=== PATIENT | female | born 2000 | race African-American/Black ===

== ENCOUNTER 2024-02-05 23:30 | Observation (INO) ==
[2024-02-05] MEDS: SODIUM CHLORIDE 0.9% 1,000 ML IV SCH (23:56)
--- NOTE | 2024-02-05 23:57 | Emergency Department Note ---
History of Present Illness General Chief complaint: Dizziness Stated complaint: since 10am, DIZZY, NAUSEA, RINGING EARS-WORSENING Time Seen by Provider: 02/05/24 23:37 History of Present Illness Patient is a 23-year-old female with past medical history significant for anxiety, PTSD, asthma, stomach problems and iron deficiency anemia who presents to the emergency department via EMS for evaluation of lightheadedness and dizziness and ringing in the left ear. Symptoms started acutely around 12 hours ago, 10:00 today. She reports she was otherwise feeling well and in her usual state of health until her symptoms started. She states that started with the dizziness, she felt like the room was spinning. She had a little headache with this, but that resolved. The dizziness persisted. She was a little bit nauseous but did not vomit. She reports the left ear started draining around 1130. She laid at home today and tried to rest. She tried to drink fluids. She did not take any medication specifically for her symptoms. This evening, she was out taking a walk with her roommate, when she began to feel dizzy and off balance. She cannot walk straight. She had to sit, then eventually had a lay down. She reports that they contacted an advice nurse Clary told to be seen in the ER so ambulance was summoned. Patient has never had symptoms like this previously. She reports she is being followed by heme-onc for the iron deficiency anemia, she had an iron infusion a couple of months ago, but recent blood work done within the last week show that her levels are low again and they are going to schedule another iron infusion. Last menstrual period was last week, she does report menses are heavy. No blood in her vomit or stool. No urinary symptoms. Home Medications Medication Instructions Recorded Confirmed Type prazosin 1 mg capsule 1 mg PO HS 12/14/23 02/06/24 History buspirone 10 mg tablet 10 mg PO DAILY 02/06/24 02/06/24 History pantoprazole 40 mg tablet,delayed 40 mg PO DAILY PRN gastric distress 02/06/24 02/06/24 History release propranolol 10 mg tablet 10 mg PO DAILY PRN Anxiety 02/06/24 02/06/24 History Allergies Allergy/AdvReac Type Severity Reaction Status Date / Time No Known Allergies Allergy Verified 12/14/23 19:35 Past Med/Surg History Problem List (Updated 02/06/24 @ 06:31 by Melania Francis) Left-sided tinnitus (Acute) Ataxia (Acute) Dizziness (Acute) Rectal bleeding Encounter for pre-operative examination Chronic constipation Gastritis hx Medical History GERD (gastroesophageal reflux disease) Iron deficiency anemia Post traumatic stress disorder hx > no longer on meds Anxiety hx > no longer on meds History of COVID-08 February 2022>no residual symptoms Asthma rare res inh use Chronic constipation Surgical History History of esophagogastroduodenoscopy (EGD) Family History Denies family history of Crohn's disease Colorectal cancer Ulcerative colitis Social History Smoking Status: Never smoker Tobacco Type: E-cigarettes / Vaping Cigarettes Per Day: advised npo status; Second Hand Exposure: No; Do You Dip or Chew Tobacco: No; Hx Alcohol Use: Yes Alcohol type: hard liquor Hx Substance Use: No Preferred Language: Wolof Communication Ability: Effective Voice And Data Technician Required: No Beliefs That Will Affect Care: None Current Living Situation: Other Current Living Situation Comment: roommate Feels Safe at Home: Yes Assistive Devices: Glasses Review of Systems A total of 10 systems reviewed and were otherwise negative Physical Exam Vital Signs Vital Signs - 24 hr 02/05/24 23:33 02/05/24 23:38 02/05/24 23:57 Temperature 37.0 C Temperature Source Oral Pulse Rate - Lying 64 Pulse Rate - Sitting 83 Pulse Rate 77 Pulse Rate [Apical] Respiratory Rate 12 Respiratory Effort / Characteristics Non-Labored Respiratory Depth Normal Respiratory Pattern Regular Blood Pressure - Lying 99/67 L Blood Pressure - Sitting 116/86 Blood Pressure 97/70 L Blood Pressure [Left Arm] Blood Pressure Mean 79 Blood Pressure Mean [Left Arm] Pulse Oximetry 99 99 Oxygen Delivery Method Room Air Room Air Oxygen Flow Rate 0 Sepsis Recent Fever Within 48 Hours No Sepsis New/Unexplained Change in Mental Status No Sepsis Action Taken by Nursing No Action Required 02/06/24 00:00 02/06/24 00:10 02/06/24 02:00 Temperature Temperature Source Pulse Rate - Lying Pulse Rate - Sitting Pulse Rate 68 Pulse Rate [Apical] 76 88 Respiratory Rate 16 15 Respiratory Effort / Characteristics Respiratory Depth Respiratory Pattern Blood Pressure - Lying Blood Pressure - Sitting Blood Pressure Blood Pressure [Left Arm] 110/65 88/47 L Blood Pressure Mean Blood Pressure Mean [Left Arm] 80 60 Pulse Oximetry 100 97 Oxygen Delivery Method Room Air Oxygen Flow Rate Sepsis Recent Fever Within 48 Hours Sepsis New/Unexplained Change in Mental Status Sepsis Action Taken by Nursing 02/06/24 04:00 02/06/24 04:00 02/06/24 06:00 Temperature Temperature Source Pulse Rate - Lying Pulse Rate - Sitting Pulse Rate 64 Pulse Rate [Apical] 64 63 Respiratory Rate 15 15 Respiratory Effort / Characteristics Respiratory Depth Respiratory Pattern Blood Pressure - Lying Blood Pressure - Sitting Blood Pressure Blood Pressure [Left Arm] 102/51 L 96/59 L Blood Pressure Mean Blood Pressure Mean [Left Arm] 68 71 Pulse Oximetry 98 97 Oxygen Delivery Method Oxygen Flow Rate Sepsis Recent Fever Within 48 Hours Sepsis New/Unexplained Change in Mental Status Sepsis Action Taken by Nursing CONSTITUTIONAL: Well-appearing 23-year-old female laying on the gurney, holding her left ear. EYES: Pupils equal, round, reactive to light and accommodation. EOMs intact without nystagmus. Sclera are anicteric. ENT: Tympanic membranes intact, with normal landmarks. External canals are clear. Specifically, left ear is healthy in appearance. No TM abnormality or perforation. Oral and nasopharynx are clear. Mucous membranes are moist, no lesions, tongue and gums appear normal. NECK: No bruits auscultated. Supple without lymphadenopathy. No thyromegaly. No meningeal signs. Full active range of motion without discomfort. CARDIOVASCULAR: Regular rate and rhythm. Peripheral pulses easy to palpable. RESPIRATORY: Breath sounds equal and clear to auscultation. GI: Bowel sounds are present. Abdomen is soft, nontender, nondistended. No organomegaly. No pulsatile masses. No guarding or rebound. MUSCULOSKELETAL: Full range of motion of extremities x 4 with good strength. No cyanosis, edema, joint tenderness or swelling. No deformity. INTEGUMENTARY: No lesions or rash, normal skin turgor. NEUROLOGICAL: Alert, oriented, and cooperative. Cranial nerves 2 through 12, sensation and strength grossly intact. [id number] and [id number] intact. Course Course The patient was seen and assessed. External medical records were reviewed. She presents to the emergency department for evaluation of dizziness and ringing in the left ear. IV lock was initiated. Laboratory studies were collected including CBC with differential, CMP, serum hCG and urinalysis. EKG was obtained and she was observed on the alarm security or surveillance monitor. Nursing staff attempted to do orthostatic vital signs. The patient reportedly could not sit up without getting dizzy and listing to the side. She was given a liter bolus of normal saline solution. Diagnostics, as interpreted by me: Laboratory studies: Normal white count, 5700. H&H 15.5 and 44.7, with low indices. Normal platelet count. No significant electrolyte imbalance, no DONNA, no transaminitis. test is negative. Urinalysis notes 1+ leukocyte Estrace, WBCs and 4+ bacteria. Suspect contamination given lack of urinary symptoms, however culture is pending and will await culture results. Urine toxicology screen is negative. ECG: Indication was dizziness. Normal sinus rhythm with sinus arrhythmia, 75 bpm. No acute ischemic changes. No interval prolongation. No old EKGs available for review. Cardiac Monitoring: Cardiac monitoring: An order was placed for continuous cardiac monitoring. The monitor shows a NSR in the 70s per my interpretation. Imaging studies: Initially obtained plain CT scan of the head: No acute intracranial process. When patient's symptoms persisted, and she was unable to walk to and from the bathroom safely, performed CT angiography of the head and neck. CTA of the head results were telephoned to me directly by interpreting radiologist, Dr. Duenas, with [facility]. He notes concern for asymmetric prominent veins associated with the right middle cerebral artery trifurcation. Concern for AV confirmation with a nidus in the right temporal lobe cannot be excluded. Recommend correlation with MRI. CTA of the neck shows no hemodynamic significant stenosis. Vital signs noted mildly low blood pressures, in the 90s over 70s. Patient was reassessed and blood work was reviewed with her. She was still feeling symptomatic. She was given additional liter of normal saline solution, Benadryl and Zofran IV. CT scan of the head was obtained. Patient was reviewed with attending physician, Dr. Gonsalves. Patient reassessed and CT scan results were discussed with her. Did suggest ambulatory trial to the restroom to provide a urine sample for analysis. Per nursing staff, patient required an assist of 2 to get to the bathroom. While seated on the toilet, she had to hold onto the toilet to keep from falling off. She was able to give a urine sample and then went right back to bed. Given her persistent ataxia/dizziness, ordered CT angiography of the head and neck. She was given meclizine 25 mg p.o. CTA of the head and neck results are as per above. Results were called directly to me by the interpreting radiologist, Dr. Duenas. CT results discussed with Dr. Gonsalves, and reviewed with the patient. She will require further inpatient care for MRI. She was agreeable. Patient reviewed with ED rifle case repairer, and discussed with [facility], Dr. Brewer. They will see the patient for admission. Differential diagnosis: Benign positional vertigo, Mnire's disease, dehydration, hypovolemia, anemia, tumor, infection, hypoglycemia, electrolyte abnormalities, arrhythmia, CVA/TIA, intracranial bleed, mass, toxicologic, neurologic, as well as other pathologies. Administered Medications Discontinued Medications Diphenhydramine HCl (Diphenhydramine 50 Mg/Ml Vial) 25 mg IV NOW STA Stop: 02/06/24 01:35 Last Admin: 02/06/24 01:41 Dose: 25 mg Documented By: DAVID Sodium Chloride (Nss) 1,000 mls @ 999 mls/hr IV .Q1H1M CHUCK Stop: 02/06/24 00:53 Last Infusion: 02/06/24 01:21 Dose: Infused Documented By: Admin: 02/05/24 23:56 Dose: 999 mls/hr Documented By: DAVID Sodium Chloride (Nss) 1,000 mls @ 999 mls/hr IV .Q1H1M CHUCK Stop: 02/06/24 02:35 Last Infusion: 02/06/24 02:48 Dose: Infused Documented By: Admin: 02/06/24 01:41 Dose: 999 mls/hr Documented By: DAVID Ioversol (Optiray 320 125ml) 120 ml IV ONCE ONE Stop: 02/06/24 05:01 Last Admin: 02/06/24 04:55 Dose: 120 ml Documented By: KWABENA Meclizine HCl (Meclizine Hcl 25 Mg Tab) 25 mg PO NOW STA Stop: 02/06/24 04:37 Last Admin: 02/06/24 04:46 Dose: 25 mg Documented By: DAVID Ondansetron HCl (Ondansetron Inj 2 Mg/Ml 2 Ml Vial) 4 mg IV NOW STA Stop: 02/06/24 01:35 Last Admin: 02/06/24 01:41 Dose: 4 mg Documented By: DAVID Medical Decision Making Differential Diagnosis See ED Course. Medical Records Attestation: I reviewed the patient's medical records. Home Medications Current Medication List: was personally reviewed by me Laboratory Data Attestation: I reviewed the patient's lab results. 02/06/24 00:27 02/06/24 00:27 Lab Results 02/06/24 02/06/24 Range/Units 00:27 04:13 WBC 5.77 (4.8-10.8) K/ul RBC 6.23 H (4.20-5.40) M/uL Hgb 15.5 (12.0-16.0) g/dl Hct 44.7 (37.0-47.0) % MCV 71.7 L (80.0-100.0) fL MCH 24.9 L (25.0-34.0) pg MCHC 34.7 (32.0-36.0) g/dL RDW Std Deviation 54.4 H (36.4-46.3) fL RDW Coeff of Deb 22.2 H (11.5-14.5) % Plt Count 297 (130-400) K/uL MPV 10.1 (9.4-12.4) fL Immature Gran % (Auto) 0.3 % Neut % (Auto) 48.2 % Lymph % (Auto) 35.2 % [place] % (Auto) 12.0 % Eos % (Auto) 3.6 % Baso % (Auto) 0.7 % Neut # (Auto) 2.78 (1.40-6.50) K/uL Lymph # (Auto) 2.03 (1.20-3.40) K/uL [place] # (Auto) 0.69 H (0.11-0.59) K/uL Eos # (Auto) 0.21 (0.00-0.50) K/uL Baso # (Auto) 0.04 (0.00-0.20) K/uL Immature Gran # (Auto) 0.02 (0.01-0.20) K/uL Absolute Nucleated RBC 0.06 (0.00-0.12) K/uL Nucleated RBC % (auto) 1.0 % Polychromasia 3+ Anisocytosis Present Sodium 139 (136-145) mmol/L Potassium 3.6 (3.5-5.1) mmol/L Chloride 108 H (98-107) mmol/L Carbon Dioxide 23 (21-32) mmol/L Anion Gap 8 (3-11) BUN 13 (6-23) mg/dl Creatinine 0.89 (0.6-1.2) mg/dl Est Cr Clr Drug Dosing 86.3 ml/min Est GFR ( Amer) 107.4 ml/min Est GFR (Non-Af Amer) 92.6 ml/min BUN/Creatinine Ratio 14.6 (10-20) Glucose 94 (70-99(Fasting)) mg/dl Calcium 9.3 (8.6-10.3) mg/dl Total Bilirubin 0.3 (0.2-1.0) mg/dl AST 18 (13-39) U/L ALT 12 (7-52) U/L Alkaline Phosphatase 42 (34-104) U/L Total Protein 6.7 (6.0-8.3) gm/dl Albumin 4.0 (3.4-5.0) gm/dl Globulin 2.7 (2.5-4.0) gm/dl Albumin/Globulin Ratio 1.5 (0.9-2) HCG, Qual Negative (Negative) Urine Color Yellow Urine Appearance Cloudy A (Clear) Urine pH 7.0 (4.5-7.5) Ur Specific [place] 1.024 (1.000-1.030) Urine Protein Negative (Negative) Urine Glucose (UA) Negative (Negative) Urine Ketones Trace H (Negative) Urine Blood Negative (Negative) Urine Nitrite Negative (Negative) Urine Bilirubin Negative (Negative) Urine Urobilinogen Negative (Negative) Ur Leukocyte Esterase 1+ H (Negative) Urine WBC (Auto) 6-10 H (0-5) /hpf Urine RBC (Auto) 0-2 (0-2) /hpf U Hyaline Cast (Auto) 0-2 (0-2) /lpf U Epithel Cells (Auto) 0-2 (0-2) /hpf Urine Bacteria (Auto) 4+ H (None Seen) Urine Opiates Screen Neg (Neg) Ur Methadone, Qual Neg (Neg) Urine Fentanyl Screen Neg (Neg) Urine Barbiturates Neg (Neg) Ur Phencyclidine (PCP) Neg (Neg) U Amphetamin/Meth Scrn Neg (Neg) MDMA (Ecstasy) Screen Neg (Neg) U Benzodiazepines Scrn Neg (Neg) Ur Cocaine Metabolite Neg (Neg) U Marijuana (THC) Screen Neg (Neg) Imaging Data Attestation: I personally reviewed and interpreted this imaging study as follows: Radiologist's Impression: Head CT 02/06/24 01:34 Exam(s): CT HEAD Without Contrast EXAM: CT Head Without Intravenous Contrast CLINICAL HISTORY: DIZZINESS, RINGING IN LEFT EAR. TECHNIQUE: Axial computed tomography images of the head/brain without intravenous contrast. CTDI is 38.99 mGy and DLP is 547.75 mGy-cm. Automated exposure control was utilized for the study. A dose lowering technique was utilized adhering to the principles of ALARA. COMPARISON: No relevant prior studies available. FINDINGS: Brain: No acute stroke. No hemorrhage. No abnormal extra-axial fluid collection. No focal parenchymal abnormality. Ventricles: No hydrocephalus. No midline shift. Bones/joints: Unremarkable. No acute fracture. Soft tissues: Unremarkable. Sinuses: Mastoid air cells and middle ears are well aerated.. No acute sinusitis. IMPRESSION: No acute abnormality. Electronically signed by: Abdelrahman Duenas M.D. 02/06/24 03:43 AM Head CTA 02/06/24 04:36 CR Exam(s): CTA HEAD With Contrast IV Amt: 120 ml EXAM: CT Angiography Head With Intravenous Contrast CLINICAL HISTORY: Reason for exam: dizziness. TECHNIQUE: Axial computed tomographic angiography images of the head with intravenous contrast. CTDI is 12.8 mGy and DLP is 480.57 mGy-cm. Automated exposure control was utilized for the study. A dose lowering technique was utilized adhering to the principles of ALARA. 3D and MIP reconstructed images were created and reviewed. CONTRAST: Patient received 120 ml of IV contrast COMPARISON: CT head 02/06/2024. FINDINGS: Right internal carotid artery: No acute abnormality. Intracranial segment is patent with no significant stenosis. No aneurysm. Right anterior cerebral artery: Unremarkable. No occlusion or significant stenosis. No aneurysm. Right middle cerebral artery: Asymmetric prominent venous structures adjacent to the proximal right middle cerebral artery trifurcation vessels with prominent draining veins. An arteriovenous malformation with a nidus in the right temporal lobe cannot be excluded. No aneurysm. Right posterior cerebral artery: Unremarkable. No occlusion or significant stenosis. No aneurysm. Right vertebral artery: Unremarkable as visualized. Left internal carotid artery: No acute abnormality. Intracranial segment is patent with no significant stenosis. No aneurysm. Left anterior cerebral artery: Unremarkable. No occlusion or significant stenosis. No aneurysm. Left middle cerebral artery: Unremarkable. No occlusion or significant stenosis. No aneurysm. Left posterior cerebral artery: Unremarkable. No occlusion or significant stenosis. No aneurysm. Left vertebral artery: Unremarkable as visualized. Basilar artery: Unremarkable. No occlusion or significant stenosis. No aneurysm. 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 An arteriovenous malformation with a nidus in the right temporal lobe cannot be excluded. Recommend correlation with MRI of the brain when clinically appropriate. Communications: Call Doctor Above results Electronically signed by: Abdelrahman Duenas M.D. 02/06/24 05:55 AM Neck CTA 02/06/24 04:36 Exam(s): CTA NECK With Contrast IV Amt: 120 ml EXAM: CT Angiography Neck With Intravenous Contrast CLINICAL HISTORY: Reason for exam: dizziness. TECHNIQUE: Routine carotid CT angiography protocol was performed with intravenous contrast. NASCET criteria using the distal ICAs for comparison were used for evaluation of stenoses. CTDI is 12.8 mGy and DLP is 480.57 mGy-cm. Automated exposure control was utilized for the study. A dose lowering technique was utilized adhering to the principles of ALARA. 3D and MIP reconstructed images were created and reviewed. CONTRAST: Patient received 120 ml of IV contrast COMPARISON: None. FINDINGS: VASCULATURE: Right common carotid artery: Unremarkable. No occlusion or significant stenosis. No dissection. Right internal carotid artery: Unremarkable. Extracranial segment is patent with no occlusion or significant stenosis. No dissection. Right external carotid artery: Unremarkable. No occlusion. Right vertebral artery: Unremarkable. No occlusion or significant stenosis. No dissection. Left common carotid artery: Unremarkable. No occlusion or significant stenosis. No dissection. Left internal carotid artery: Unremarkable. Extracranial segment is patent with no occlusion or significant stenosis. No dissection. Left external carotid artery: Unremarkable. No occlusion. Left vertebral artery: Unremarkable. No occlusion or significant stenosis. No dissection. NECK: Bones/joints: Unremarkable. No acute fracture. Soft tissues: Unremarkable. Lung apices: Clear. CAROTID STENOSIS REFERENCE USING NASCET CRITERIA: % ICA stenosis = (1 - narrowest ICA diameter/diameter of distal cervical ICA) x 100. Mild - <50% stenosis. Moderate - 50-69% stenosis. Severe - 70-94% stenosis. Near occlusion - 95-99% stenosis. Occluded - 100% stenosis. IMPRESSION: No hemodynamically significant stenosis. Electronically signed by: Abdelrahman Duenas M.D. 02/06/24 05:56 AM MDM Narrative See ED Course. Impression & Plan Dizziness, Ataxia, Left-sided tinnitus Discharge Plan Visit Data Chief Complaint: Dizziness Stated Complaint: since 10am, DIZZY, NAUSEA, RINGING EARS-WORSENING ED Provider: Lisa Gonsalves ED Midlevel Provider: Melania Francis Discharge Problem: Dizziness, Ataxia, Left-sided tinnitus Patient Disposition: Being Evaluated by Hospitalist Forms Stand Alone Forms: [facility] Prescriptions Prescriptions: No Action buspirone 10 mg tablet 10 mg PO DAILY propranolol 10 mg tablet 10 mg PO DAILY PRN (Reason: Anxiety) pantoprazole 40 mg tablet,delayed release (DR/EC) 40 mg PO DAILY PRN (Reason: gastric distress) prazosin 1 mg capsule 1 mg PO HS Referrals Referrals: [place] [Primary Care Provider] -
[2024-02-06 00:53] LABS: Bilirubin,Total 0.3 mg/dl (0.2-1.0); Calcium 9.3 mg/dl (8.6-10.3); Potassium 3.6 mmol/L (3.5-5.1)
[2024-02-06 00:59] LABS: Albumin Globulin Ratio 1.5 (0.9-2); BUN Creatinine Ratio 14.6 (10-20); Creatinine Clr Calc Pharmacy 86.3 ml/min; Est GFR (African American) 107.4 ml/min; Est GFR (Non-African American) 92.6 ml/min; Globulin 2.7 gm/dl (2.5-4.0); Total Protein 6.7 gm/dl (6.0-8.3)
[2024-02-06 01:32] LABS: Pregnancy Test, Serum Negative (Negative)
[2024-02-06] MEDS: ONDANSETRON INJ 2 MG/ML 2 ML VIAL IV STA (01:41)
[2024-02-06] MEDS: diphenhydrAMINE 50 MG/ML VIAL IV STA (01:41)
[2024-02-06] MEDS: SODIUM CHLORIDE 0.9% 1,000 ML IV SCH (01:41)
[2024-02-06 02:12] LABS: Anisocytosis Present; Basophils # (auto) 0.04 K/uL (0.00-0.20); Basophils % (auto) 0.7 %; Eosinophils # (auto) 0.21 K/uL (0.00-0.50); Eosinophils % (auto) 3.6 %; Hematocrit (blood only) 44.7 % (37.0-47.0); Hemoglobin 15.5 g/dl (12.0-16.0); Immature Granulocytes # (auto) 0.02 K/uL (0.01-0.20); Immature Granulocytes % (auto) 0.3 %; Lymphocytes # (auto) 2.03 K/uL (1.20-3.40); Lymphocytes % (auto) 35.2 %; Mean Corpuscular Hemoglobin 24.9 pg (25.0-34.0); Mean Corpuscular Hgb Conc 34.7 g/dL (32.0-36.0); Mean Corpuscular Volume 71.7 fL (80.0-100.0); Mean Platelet Volume 10.1 fL (9.4-12.4); Monocytes # (auto) 0.69 K/uL (0.11-0.59); Neutrophils # (auto) 2.78 K/uL (1.40-6.50); Neutrophils % (auto) 48.2 %; Nucleated RBC # (auto) 0.06 K/uL (0.00-0.12); Platelet Count 297 K/uL (130-400); Polychromasia 3+; RDW Coefficient of Variation 22.2 % (11.5-14.5); RDW Standard Deviation 54.4 fL (36.4-46.3); Red Blood Count 6.23 M/uL (4.20-5.40); White Blood Count 5.77 K/ul (4.8-10.8)
--- NOTE | 2024-02-06 03:44 | CT Scan Report ---
Exam(s): CT HEAD Without Contrast EXAM: CT Head Without Intravenous Contrast CLINICAL HISTORY: DIZZINESS, RINGING IN LEFT EAR. TECHNIQUE: Axial computed tomography images of the head/brain without intravenous contrast. CTDI is 38.99 mGy and DLP is 547.75 mGy-cm. Automated exposure control was utilized for the study. A dose lowering technique was utilized adhering to the principles of ALARA. COMPARISON: No relevant prior studies available. FINDINGS: Brain: No acute stroke. No hemorrhage. No abnormal extra-axial fluid collection. No focal parenchymal abnormality. Ventricles: No hydrocephalus. No midline shift. Bones/joints: Unremarkable. No acute fracture. Soft tissues: Unremarkable. Sinuses: Mastoid air cells and middle ears are well aerated.. No acute sinusitis. IMPRESSION: No acute abnormality. Electronically signed by: Abdelrahman Duenas M.D. 02/06/24 03:43 AM
[2024-02-06 04:39] LABS: Appearance Urine Cloudy (Clear); Bacteria Urine Automated 4+ (None Seen); Bilirubin Urine Negative (Negative); Blood Urine Negative (Negative); Cast Urine Automated 0-2 /lpf (0-2); Color Urine Yellow; Epithelial Cell Urine Auto 0-2 /hpf (0-2); Glucose Urine UA Negative (Negative); Ketones Urine Trace (Negative); Leukocyte Esterase Urine 1+ (Negative); Nitrite Urine Negative (Negative); Protein Urine Negative (Negative); RBC Urine Automated 0-2 /hpf (0-2); Specific Gravity Urine 1.024 (1.000-1.030); Urobilinogen Urine Negative (Negative)
[2024-02-06] MEDS: MECLIZINE HCL 25 MG TAB PO STA (04:46)
[2024-02-06] MEDS: OPTIRAY 320 125ml IV ONE (04:55)
[2024-02-06 05:09] LABS: Amphetamines+Metham, Urine Neg (Neg); Barbiturates, Urine Neg (Neg); Benzodiazepine, Urine Neg (Neg); Cocaine, Urine Neg (Neg); Fentanyl, Urine Neg (Neg); MDMA (Ecstacy), Urine Neg (Neg); Marijuana, Urine Neg (Neg); Methadone, Urine Neg (Neg); Opiate, Urine Neg (Neg); Phencyclidine, Urine Neg (Neg)
--- NOTE | 2024-02-06 05:56 | CT Scan Report ---
Exam(s): CTA HEAD With Contrast IV Amt: 120 ml EXAM: CT Angiography Head With Intravenous Contrast CLINICAL HISTORY: Reason for exam: dizziness. TECHNIQUE: Axial computed tomographic angiography images of the head with intravenous contrast. CTDI is 12.8 mGy and DLP is 480.57 mGy-cm. Automated exposure control was utilized for the study. A dose lowering technique was utilized adhering to the principles of ALARA. 3D and MIP reconstructed images were created and reviewed. CONTRAST: Patient received 120 ml of IV contrast COMPARISON: CT head 02/06/2024. FINDINGS: Right internal carotid artery: No acute abnormality. Intracranial segment is patent with no significant stenosis. No aneurysm. Right anterior cerebral artery: Unremarkable. No occlusion or significant stenosis. No aneurysm. Right middle cerebral artery: Asymmetric prominent venous structures adjacent to the proximal right middle cerebral artery trifurcation vessels with prominent draining veins. An arteriovenous malformation with a nidus in the right temporal lobe cannot be excluded. No aneurysm. Right posterior cerebral artery: Unremarkable. No occlusion or significant stenosis. No aneurysm. Right vertebral artery: Unremarkable as visualized. Left internal carotid artery: No acute abnormality. Intracranial segment is patent with no significant stenosis. No aneurysm. Left anterior cerebral artery: Unremarkable. No occlusion or significant stenosis. No aneurysm. Left middle cerebral artery: Unremarkable. No occlusion or significant stenosis. No aneurysm. Left posterior cerebral artery: Unremarkable. No occlusion or significant stenosis. No aneurysm. Left vertebral artery: Unremarkable as visualized. Basilar artery: Unremarkable. No occlusion or significant stenosis. No aneurysm. 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 An arteriovenous malformation with a nidus in the right temporal lobe cannot be excluded. Recommend correlation with MRI of the brain when clinically appropriate. Communications: Call Doctor Above results Electronically signed by: Abdelrahman Duenas M.D. 02/06/24 05:55 AM
--- NOTE | 2024-02-06 05:58 | CT Scan Report ---
Exam(s): CTA NECK With Contrast IV Amt: 120 ml EXAM: CT Angiography Neck With Intravenous Contrast CLINICAL HISTORY: Reason for exam: dizziness. TECHNIQUE: Routine carotid CT angiography protocol was performed with intravenous contrast. NASCET criteria using the distal ICAs for comparison were used for evaluation of stenoses. CTDI is 12.8 mGy and DLP is 480.57 mGy-cm. Automated exposure control was utilized for the study. A dose lowering technique was utilized adhering to the principles of ALARA. 3D and MIP reconstructed images were created and reviewed. CONTRAST: Patient received 120 ml of IV contrast COMPARISON: None. FINDINGS: VASCULATURE: Right common carotid artery: Unremarkable. No occlusion or significant stenosis. No dissection. Right internal carotid artery: Unremarkable. Extracranial segment is patent with no occlusion or significant stenosis. No dissection. Right external carotid artery: Unremarkable. No occlusion. Right vertebral artery: Unremarkable. No occlusion or significant stenosis. No dissection. Left common carotid artery: Unremarkable. No occlusion or significant stenosis. No dissection. Left internal carotid artery: Unremarkable. Extracranial segment is patent with no occlusion or significant stenosis. No dissection. Left external carotid artery: Unremarkable. No occlusion. Left vertebral artery: Unremarkable. No occlusion or significant stenosis. No dissection. NECK: Bones/joints: Unremarkable. No acute fracture. Soft tissues: Unremarkable. Lung apices: Clear. CAROTID STENOSIS REFERENCE USING NASCET CRITERIA: % ICA stenosis = (1 - narrowest ICA diameter/diameter of distal cervical ICA) x 100. Mild - <50% stenosis. Moderate - 50-69% stenosis. Severe - 70-94% stenosis. Near occlusion - 95-99% stenosis. Occluded - 100% stenosis. IMPRESSION: No hemodynamically significant stenosis. Electronically signed by: Abdelrahman Duenas M.D. 02/06/24 05:56 AM
--- NOTE | 2024-02-06 09:58 | Magnetic Resonance Report ---
MR angio head wo con HISTORY: 23 years-old Female DIZZINESS, ATAXIA, ABNORMAL HEAD CTA acute dizziness COMPARISON: Head CT of same day TECHNIQUE: MRI of the head was obtained with 3-D [id number] sequencing utilizing reformats. All m easurements were obtained according to NASCET criteria. FINDINGS: No aneurysm, dissection, high-grade stenosis or arterial occlusion. IMPRESSION: Normal MRA of the head. ACT 112: Negative or not required by law. The above report was generated using voice recognition software. It may contain grammatical, syntax o r spelling errors. Electronically signed by: Alejandro Alas M.D. 02/06/2024 9:55 AM
[2024-02-06] MEDS: GADOBUTROL 7.5ML VIAL IV ONE (10:01)
--- NOTE | 2024-02-06 10:41 | Magnetic Resonance Report ---
MR brain wo/w con HISTORY: 23 years-old Female DIZZINESS, ATAXIA, ABNORMAL HEAD CTA acute dizziness with lightheadedne ss COMPARISON: Head CT of same day TECHNIQUE: Multiplanar multisequence MRI the brain was obtained with and without IV contrast. FINDINGS: No restricted diffusion. Unremarkable midline structures. There is no acute intracranial hemorrhage, midline shift, abnormal extra-axial collection, hydrocephalus or intra-axial mass. No pathologic bloo shivam artifact. Normal signal and volume characteristics of the brain parenchyma. Cerebral venous sinuses and major arterial flow voids appear patent. The skull, orbits and soft tissu es are unremarkable. Minimal mucosal thickening of the paranasal sinuses. Mastoid air cells are clear . No abnormal enhancement. IMPRESSION: 1. Normal MRI of the brain. 2. No abnormal enhancement. ACT 112: Negative or not required by law. The above report was generated using voice recognition software. It may contain grammatical, syntax o r spelling errors. Electronically signed by: Alejandro Alas M.D. 02/06/2024 10:40 AM
--- NOTE | 2024-02-06 11:38 | History & Physical Report ---
Date of Service February 06, 2024 Assessment & Plan (1) Dizziness: (2) Anxiety: (3) Post traumatic stress disorder: (4) Iron deficiency anemia: (5) Left-sided tinnitus: Plan Sandy is a 23 year old female admitted for profound dizziness and tinnitus. Dizziness/Tinnitus: -Patient with sudden onset of dizziness and continuous non-pulsatile tinnitus -Neuro exam reassuring, blood work unremarkable. U/A positive however no symptoms. -CTA head with possible arteriovenous malformation. -Discussed with neurology, if MRA negative, likely the CTA findings are incidental and not related. -Differential includes meniere's disease, labyrinthitis, BPPV, viral URI, otitis. -Will try to maximize anti-inflammatory/anti-allergen regimen with Zyrtec, Flonase. -Some irritation at the L ear canal, will treat with ofloxacin drops. -Meclizine PRN for dizziness, Zofran PRN for nausea. -PT/OT for dizziness/gait issue if BPPV in origin. Anxiety/PTSD: -Continue home buspirone, prazosin. Diet: Regular Dvt Prophylaxis: If prolonged stay can add on, try for ambulation for time being with assist of PT Code: Full' Dispo: Med/surg History of Present Illness Chief Complaint: Dizziness Primary Care Provider: [facility] Sandy is a 23 year old female with past history of iron deficiency anemia following with hematology on iron infusions, anxiety, PTSD coming to the ER for dizziness x1 day. Patient states that the day prior she was eating breakfast around 10AM when all of a sudden she felt dizzy like the room was spinning as well as ringing in the left ear and a little bit of hearing reduction. The ringing in the ear is continuous and not pulsatile in nature. She did not have any discharge out of her ears or ear pain. The dizziness is worse with standing but is present when she is laying down or anytime with motion. This became especially debilitating to her throughout the day and she came to the ER for evaluation. She denies any fevers, chills, congestion, URI symptoms, dysuria, urinary frequency, diarrhea. In the ER patient received 1L NSS, zofran, benadryl, meclizine. Blood work unremarkable, U/A with 4+ Bacteria, WBC, LE. CTA of head revealed asymmetric prominent veins associated with R middle cerebral artery trifurcation - arterio venous malformation with nidus in the R temporal lobe can't be excluded, recommended MRA brain. MRA and MRI brain normal/unremarkable. Allergies Allergy/AdvReac Type Severity Reaction Status Date / Time No Known Allergies Allergy Verified 12/14/23 19:35 Home Medications Medication Instructions Recorded Confirmed Type prazosin 1 mg capsule 1 mg PO HS 12/14/23 02/06/24 History buspirone 10 mg tablet 10 mg PO DAILY 02/06/24 02/06/24 History pantoprazole 40 mg tablet,delayed 40 mg PO DAILY PRN gastric distress 02/06/24 02/06/24 History release propranolol 10 mg tablet 10 mg PO DAILY PRN Anxiety 02/06/24 02/06/24 History Past Med/Surg History Problem List (Updated 02/06/24 @ 06:31 by Melaina Francis) Left-sided tinnitus (Acute) Ataxia (Acute) Dizziness (Acute) Rectal bleeding Encounter for pre-operative examination Chronic constipation Gastritis hx Medical History GERD (gastroesophageal reflux disease) Iron deficiency anemia Post traumatic stress disorder hx > no longer on meds Anxiety hx > no longer on meds History of COVID-08 February 2022>no residual symptoms Asthma rare res inh use Chronic constipation Surgical History History of esophagogastroduodenoscopy (EGD) Family History Denies family history of Crohn's disease Colorectal cancer Ulcerative colitis Social History Smoking Status: Never smoker Tobacco Type: E-cigarettes / Vaping Cigarettes Per Day: advised npo status; Second Hand Exposure: No; Do You Dip or Chew Tobacco: No; Hx Alcohol Use: Yes Alcohol type: hard liquor Hx Substance Use: No Preferred Language: Swedish Communication Ability: Effective Yard Cleaner Required: No Beliefs That Will Affect Care: None Current Living Situation: Other Current Living Situation Comment: apartment with 1 roommate Other Information That Helps Us Care for You: No Feels Safe at Home: Yes Safety Concerns: Feels Safe At This Time Assistive Devices: Glasses Review of Systems Review of Systems: As per HPI. Physical Exam Constitutional: WD/WN, vitals as above Patient lying in bed not wanting to roll over due to profound dizziness experienced with motion. Eyes: PERRL, conjunctivae normal, anicteric sclerae no nystagmus or saccades. ENMT: L tympanic membrane mildly dull however still with cone of light, slight irritation at the canal with what looks like a scab and possibly some erythema. Respiratory: normal respiratory effort, lungs clear to auscultation Cardiovascular: RRR, no murmur, no edema Gastrointestinal (Abdomen): normal bowel sounds, soft, nontender, no hepatosplenomegaly Musculoskeletal: no cyanosis or clubbing, extremities motor strength 5/5 Neurologic: patellar DTR's 2+ bilat, sensation intact CN's II-XI intact bilaterally Psychiatric: A+Ox3, euthymic affect Results & Data Results & Data Vital Signs (Past 12 Hours) Vital Signs Pulse Pulse Resp BP Pulse Ox O2 Del Method O2 Flow Rate 02/06/24 11:00 63 12 91/53 L 98 Room Air 02/06/24 08:32 99 H 02/06/24 08:00 62 12 97/56 L 97 Room Air 02/06/24 06:00 63 15 96/59 L 97 02/06/24 04:00 64 15 102/51 L 98 02/06/24 04:00 64 02/06/24 02:00 88 15 88/47 L 97 02/06/24 00:10 68 02/06/24 00:00 76 16 110/65 100 Room Air 02/05/24 23:38 99 Room Air 0 Supervising Physician Co-Signing Physician Notes I personally examined the patient and verified vega points of history and exam, discussed case, and agree with decision making and plan documented by Dr. Mcghee. Patient reports episode of ear popping yesterday, followed by worsening dizziness and difficulty ambulating resulting in admission. Patient denies substance use or possible STIs. Reviewed MRI/MRA results. Patient with intact strength. TM clear b/l with no obvious otic abnormality. Consider ENT evaluation and recommend PT vestibular evaluation. Resident Activity Tracking Resident Involvement: Resident Care Provided Care Provided: Adult [facility]
[2024-02-06] MEDS ORDERED: ONDANSETRON INJ 2 MG/ML 2 ML VIAL IV PRN (14:46)
[2024-02-06] MEDS ORDERED: ACETAMINOPHEN 325 MG TAB PO PRN (14:46)
[2024-02-06] MEDS ORDERED: MELATONIN 3 MG TAB PO PRN (14:46)
[2024-02-06] MEDS ORDERED: PANTOprazole 40 MG TAB PO PRN (14:46)
[2024-02-06] MEDS ORDERED: POLYETHYLENE (MIRALAX) 17 GM PACK PO PRN (14:46)
[2024-02-06] MEDS: NEOMYCIN/POLYMYXIN/DEXAMETHA OP OINT 3.5 GM TUBE OP SCH (16:19)
[2024-02-06] MEDS: CETIRIZINE HCL 10 MG TABLET PO ONE (16:57)
[2024-02-06] MEDS ORDERED: OFLOXACIN 0.3% 75 DROPS/5 ML BTL OP SCH (21:00)
[2024-02-06] MEDS: PRAZOSIN HCL 1 MG CAP PO SCH (21:10)
[2024-02-06] MEDS: FLUTICASONE PROPIONATE NA SPR 16 GM BTL SCH (21:11)
[2024-02-06] MEDS: OFLOXACIN 0.3% 75 DROPS/5 ML BTL OTL SCH (21:12)
--- NOTE | 2024-02-07 07:07 | Hospitalist Progress Note ---
Date of Service February 07, 2024 Assessment & Plan (1) Dizziness: Plan: Sandy is a 23 year old female admitted for profound dizziness and tinnitus. Vertigo with unilateral tinnitus, likely labyrinthitis -Patient with sudden onset of vertigo (room spinning) and continuous non- pulsatile tinnitus -Neuro exam reassuring, blood work unremarkable. Utox negative. U/A positive however no symptoms. -CTA head: possible arteriovenous malformation. MRA negative CTA findings are likely incidental and not related. -s/p LR 1000 * Continue Zyrtec, Flonase, ofloxacin drops. * Meclizine PRN for dizziness, Zofran PRN for nausea. * PT/OT for dizziness/gait issue if BPPV in origin. * Consider ENT evaluation outpatient Anxiety/PTSD: * Continue home buspirone and prazosin. Asymptomatic Bacteremia -Patient not having any dysuria or abdominal pain. She has not been able to urinate since presentation. -Urinalysis: Trace ketones, negative blood, negative nitrates, 1+ leukocyte esterase, 4+ urine bacteria -Urine culture positive for 2 staph organisms Diet: Regular Dvt Prophylaxis: If prolonged stay can add on, try for ambulation for time being with assist of PT Code: Full PT/OT: Consulted Dispo: Med/surg (2) Anxiety: (3) Post traumatic stress disorder: (4) Iron deficiency anemia: (5) Left-sided tinnitus: Admission and Anticipated Discharge Date Admission Date: February 06, 2024 Supervising Physician Co-Signing Physician Notes I personally examined the patient and verified all vega points of history and exam, discussed case, and agree with decision making with Dr Thakkar and Lidya Frederick MS4 Still very vertiginous/spinning dizzy with pretty much any movement. She notes when she is laying still it is not nearly as bad. Still not able to move around much because she feels so dizzy. Vitals noted, in general she is awake and alert pleasant no distress. HEENT normocephalic atraumatic mucous membranes moist, mostly clear slightly clouded fluid behind TMs bilaterally. Canals clear. No nystagmus. At the same time, while she appears comfortable laying, whenever I have her sit up or try to stand she really loses her balance and has very uneven posturewhen asking what was happening, she notes that she feels like she is falling, and that she is very vertiginously dizzy. Vertigowhile she has the triad for Mnire's of vertigo, hearing loss, and tinnitusI suspect the hearing loss and tinnitus are more from serous otitis/OM PE, and the dizziness with its rapid onset seems to fit much more with a labyrinthitis. Given her ear findings, likely postviral. Reassurance, supportive care, time. Close outpatient follow-up. Obviously ENT follow-up if the tinnitus and hearing loss/vertigo persist, but if this behaves as labyrinthitis, I suspect the dizziness will improve over the coming days, given its severity it may last for a few weeks in total (informed patient of this), and I suspect that the hearing loss and tinnitus would get better in a pattern consistent with eustachian tube dysfunction/OME. Otherwise as above Subjective No overnight events. She reports that her symptoms onset following the sensation of her ears popping on 2 days ago. The patient is now endorsing blurry vision for near objects. She reported the sensation of being able to feel her heart in her head, arms, and legs, but is unsure if it was associated with her heart beating. She has not had a BM since admission, but notes that her regular schedule is every few days. She denies any fevers, chills, congestion, URI symptoms, dysuria, urinary frequency, diarrhea. She denied triggers such as stress, fatigue, new foods, recent illness, recent ear infections. Her most recent illness was a sinus infection in 2023. She does drink alcohol, most recently this past Wednesday. She "sometimes drinks a lot, sometimes does not drink a lot." When she drinks a lot, she has 4 shots of tequila. When she is not drinking a lot, she will have 1 mixed drink. She denies marijuana and tobacco use. Review of Systems 2 Review of Systems: As per HPI. Physical Exam 2 Physical Exam: Constitutional: Well-appearing, no acute distress HEENT: NCAT, no conjunctival injection, no scleral icterus CV: Normal rate and rhythm, no murmur appreciated, extremities well-perfused, no LE edema Resp: CTABL, no wheezes/rales/rhonchi appreciated,no increased work of breathing GI: soft, nondistended, nontender, BS normoactive MSK: no gross deformities appreciated Skin: warm, dry, no rash appreciated Neuro: alert, oriented, no focal neurologic deficits appreciated. CRANIAL NERVES: II: Pinpoint pupils at baseline III, IV, : EOM intact, no gaze preference or deviation, no nystagmus. V: normal sensation in V1, V2, and V3 segments bilaterally VII: no asymmetry, no nasolabial fold flattening VIII: normal hearing to speech IX, X: normal palatal elevation, no uvular deviation XI: Unable to evaluate secondary to dizziness XII: midline tongue protrusion MOTOR: 5/5 strength in major upper and lower ex tremity groups bilaterally. SENSORY: Normal to touch in all limbs. Results & Data Results & Data Vital Signs (Past 12 Hours) Vital Signs Temp Pulse Resp BP Pulse Ox O2 Del Method 02/07/24 06:58 36.6 C 62 16 96/62 L 99 Room Air 02/06/24 19:54 36.8 C 68 14 96/66 L Laboratory Results 02/07/24 06:58 02/07/24 06:[address] No acute abnormality. CTA HEAD With Contrast IV Amt: 120 ml Asymmetric prominent veins associated with the right middle cerebral artery trifurcation. An arteriovenous malformation with a nidus in the right temporal lobe cannot be excluded. Recommend correlation with MRI of the brain when clinically appropriate. CTA NECK With Contrast IV Amt: No hemodynamically significant stenosis. Brain MRI 1. Normal MRI of the brain. 2. No abnormal enhancement. Head MRI IMPRESSION: Normal MRA of the head. Medications Administered Buspirone HCl (Buspirone 5 Mg Tab) 10 mg PO DAILY CHUCK Stop: 03/08/24 08:59 Last Admin: 02/07/24 08:12 Dose: 10 mg Documented By: VAIBHAV Fluticasone Propionate (Fluticasone Propionate Na Spr 16 Gm Btl) 2 sprays NA BID CHUCK Stop: 03/07/24 20:59 Last Admin: 02/07/24 08:12 Dose: 2 sprays Documented By: Admin: 02/06/24 21:11 Dose: 2 sprays Documented By: FARRAH Meclizine HCl (Meclizine Hcl 25 Mg Tab) 25 mg PO Q6H PRN PRN Reason: Dizziness or Vertigo Stop: 03/07/24 14:45 Last Admin: 02/07/24 08:48 Dose: 25 mg Documented By: VAIBHAV Ofloxacin (Ofloxacin 0.3% 75 Drops/5 Ml Btl) 5 drops OTL BID CHUCK Stop: 02/16/24 20:59 Last Admin: 02/07/24 08:13 Dose: 5 drops Documented By: Admin: 02/06/24 21:12 Dose: 5 drops Documented By: FARRAH Prazosin HCl (Prazosin Hcl 1 Mg Cap) 1 mg PO HS [facility] Stop: 03/07/24 20:59 Last Admin: 02/06/24 21:10 Dose: Not Given Documented By: FARRAH ECG Additional Comments: Sinus luke, sinus rhythm with sinus arrhythmia
[2024-02-07 07:34] LABS: Hematocrit (blood only) 34.1 % (37.0-47.0); Hemoglobin 11.6 g/dl (12.0-16.0); Mean Corpuscular Hemoglobin 24.7 pg (25.0-34.0); Mean Corpuscular Volume 72.6 fL (80.0-100.0); Mean Platelet Volume 9.6 fL (9.4-12.4); Platelet Count 287 K/uL (130-400); RDW Coefficient of Variation 21.4 % (11.5-14.5); RDW Standard Deviation 55.4 fL (36.4-46.3); White Blood Count 5.55 K/ul (4.8-10.8)
[2024-02-07 07:50] LABS: Thyroid Stimulating Hormone 0.923 uIu/ml (0.300-4.500)
[2024-02-07] MEDS: busPIRone 5 MG TAB PO SCH (08:12)
[2024-02-07] MEDS: MECLIZINE HCL 25 MG TAB PO PRN (08:48)
[2024-02-07 08:56] LABS: BUN Creatinine Ratio 12.7 (10-20); Calcium 9.5 mg/dl (8.6-10.3); Creatinine Clr Calc Pharmacy 97.3 ml/min
[2024-02-07] MEDS: LACTATED RINGER'S 1,000 ML IV SCH (11:40)
[2024-02-07] MEDS: cephALEXin 500 MG CAP PO SCH (12:27)
--- NOTE | 2024-02-07 16:59 | Electrocardiogram Report ---
Test Reason : Blood Pressure : / mmHG Vent. Rate : 054 BPM Atrial Rate : 054 BPM P-R Int : 164 ms QRS Dur : 086 ms QT Int : 420 ms P-R-T Axes : 047 081 038 degrees QTc Int : 398 ms Sinus bradycardia with sinus arrhythmia Otherwise normal ECG When compared with ECG of 14-DEC-2023 17:45, No significant change was found Confirmed by Clifford Reza ([id number]) on 02/07/2024 4:58:47 PM Referred By: REFERRED SELF Confirmed By:Clifford Reza
--- NOTE | 2024-02-07 17:52 | Billing Data ---
Date of Service February 07, 2024 Coding Level of Care Code 44733 SUB INP/OBS CARE MIN
--- NOTE | 2024-02-08 07:07 | Hospitalist Progress Note ---
Date of Service February 08, 2024 Assessment & Plan (1) Dizziness: Plan: Sandy is a 23 year old female admitted for profound dizziness and tinnitus. Vertigo with unilateral tinnitus, likely labyrinthitis -Patient with sudden onset of vertigo (room spinning) and continuous non- pulsatile tinnitus -Neuro exam reassuring, blood work unremarkable. Utox negative. U/A positive however no symptoms. -CTA head: possible arteriovenous malformation. MRA negative CTA findings are likely incidental and not related. -s/p LR 1000 * Continue Zyrtec, Flonase, ofloxacin drops. * Meclizine PRN for dizziness, Zofran PRN for nausea. * PT/OT for dizziness/gait issue if BPPV in origin. * Consider ENT evaluation outpatient Anxiety/PTSD: * Continue home buspirone 10 mg PO and prazosin 1 mg PO. Asymptomatic Bacteremia -Patient not having any dysuria or abdominal pain. She has not been able to urinate since presentation. -Urinalysis: Trace ketones, negative blood, negative nitrates, 1+ leukocyte esterase, 4+ urine bacteria -Urine culture positive for 2 staph organisms Diet: Regular Dvt Prophylaxis: If prolonged stay can add on, try for ambulation for time being with assist of PT Code: Full PT/OT: Consulted Dispo: Med/surg (2) Anxiety: (3) Post traumatic stress disorder: (4) Iron deficiency anemia: (5) Left-sided tinnitus: Admission and Anticipated Discharge Date Admission Date: February 06, 2024 Supervising Physician Co-Signing Physician Notes I personally examined the patient and verified all vega points of history and exam, discussed case, and agree with decision making with Lidya Frederick MS4 still quite dizzy, still does not feel well enough to go home, but definitely feels like she is feeling better. Quite vertiginous with movement, but with a walker was able to get to and from the bathroom on her own. Vertigo at rest appears to have resolved. Hearing/tinnitus seems to be improving. Vitals noted, in general she is awake and alert pleasant no distress. HEENT normocephalic atraumatic mucous membranes moist. Breathing unlabored no accessory muscle use good effort. Skin without rashes pallor or icterus. Neuro without focal deficits. Vertigowhile she has the triad for Mnire's of vertigo, hearing loss, and tinnitusI suspect the hearing loss and tinnitus are more from serous otitis/OM PE, and the dizziness with its rapid onset seems to fit much more with a labyrinthitis. Given her ear findings, likely postviral. Reassurance, supportive care, time. Close outpatient follow-up after dc. Obviously ENT follow-up if the tinnitus and hearing loss/vertigo persist, but if this behaves as labyrinthitis, I suspect the dizziness will improve over the coming days, given its severity it may last for a few weeks in total (informed patient of this), and I suspect that the hearing loss and tinnitus would get better in a pattern consistent with eustachian tube dysfunction/OME. Her pattern of improvement from yesterday to today fortunately fits with our working diagnoses. Hopefully home soon Otherwise as above Subjective No overnight events. The patient is still endorsing dizziness. She has been able to ambulate to the bathroom on her own using a walker. She is still endorsing left ear tinnitus, but it has gotten a little quieter since yesterday. The patient has urinated without difficulty and had a bowel movement. Review of Systems Review of Systems: As per HPI. Physical Exam Physical Exam: Constitutional: Well-appearing, no acute distress HEENT: NCAT, no conjunctival injection, no scleral icterus CV: Normal rate and rhythm, no murmur appreciated, extremities well-perfused, no LE edema Resp: CTABL, no wheezes/rales/rhonchi appreciated,no increased work of breathing GI: soft, nondistended, nontender, BS normoactive MSK: no gross deformities appreciated Skin: warm, dry, no rash appreciated Neuro: alert, oriented, no focal neurologic deficits appreciated. Results & Data Results & Data Vital Signs (Past 12 Hours) Vital Signs Temp Pulse Resp BP Pulse Ox O2 Del Method 02/07/24 19:15 97.5 F L 68 16 102/65 100 Room Air Medications Administered Current Inpatient Medications Acetaminophen (Acetaminophen 325 Mg Tab) 650 mg PO Q4H PRN PRN Reason: pain/fever Stop: 03/07/24 14:45 Buspirone HCl (Buspirone 5 Mg Tab) 10 mg PO DAILY CHUCK Stop: 03/08/24 08:59 Last Admin: 02/08/24 09:20 Dose: 10 mg Cephalexin HCl (Cephalexin 500 Mg Cap) 500 mg PO QID [facility]; Protocol Stop: 02/12/24 12:59 Last Admin: 02/08/24 12:55 Dose: 500 mg Fluticasone Propionate (Fluticasone Propionate Na Spr 16 Gm Btl) 2 sprays NA BID [facility] Stop: 03/07/24 20:59 Last Admin: 02/08/24 09:21 Dose: 2 sprays Lactated Ringer's (Lr) 1,000 mls @ 150 mls/hr IV .Q6H40M [facility] Stop: 03/08/24 10:59 Last Admin: 02/08/24 11:55 Dose: 150 mls/hr Meclizine HCl (Meclizine Hcl 25 Mg Tab) 25 mg PO Q6H PRN PRN Reason: Dizziness or Vertigo Stop: 03/07/24 14:45 Last Admin: 02/07/24 08:48 Dose: 25 mg Melatonin (Melatonin 3 Mg Tab) 3 mg PO HS PRN PRN Reason: Insomnia Stop: 03/07/24 14:45 Ofloxacin (Ofloxacin 0.3% 75 Drops/5 Ml Btl) 5 drops OTL BID [facility] Stop: 02/16/24 20:59 Last Admin: 02/08/24 09:21 Dose: 5 drops Ondansetron HCl (Ondansetron Inj 2 Mg/Ml 2 Ml Vial) 4 mg IV Q6H PRN PRN Reason: Nausea Stop: 03/07/24 14:45 Pantoprazole Sodium (Pantoprazole 40 Mg Tab) 40 mg PO DAILY PRN PRN Reason: gastric distress Stop: 03/07/24 14:45 Polyethylene Glycol (Polyethylene (Miralax) 17 Gm Pack) 17 gm PO DAILY PRN PRN Reason: Constipation Stop: 03/07/24 14:45 Prazosin HCl (Prazosin Hcl 1 Mg Cap) 1 mg PO HS [facility] Stop: 03/07/24 20:59 Last Admin: 02/07/24 19:17 Dose: 1 mg
--- NOTE | 2024-02-08 12:34 | Electrocardiogram Report ---
Test Reason : Blood Pressure : / mmHG Vent. Rate : 066 BPM Atrial Rate : 066 BPM P-R Int : 140 ms QRS Dur : 086 ms QT Int : 386 ms P-R-T Axes : 060 101 080 degrees QTc Int : 404 ms Normal sinus rhythm with sinus arrhythmia Rightward axis Borderline ECG When compared with ECG of 06-FEB-2024 14:02, No significant change was found Confirmed by Clifford Reza ([id number]) on 02/08/2024 12:33:51 PM Referred By: REFERRED SELF Confirmed By:Clifford Reza
--- NOTE | 2024-02-08 20:05 | Billing Data ---
Date of Service February 08, 2024 Coding Level of Care Code 40909 SUB INP/OBS CARE
--- NOTE | 2024-02-09 07:07 | Hospitalist Progress Note ---
Date of Service February 09, 2024 Assessment & Plan (1) Dizziness: Plan: Sandy is a 23 year old female with PMH of gastritis, constipation, and anxiety/PTSD who presented for profound dizziness and tinnitus and was admitted for management of likely labyrinthitis. Vertigo with unilateral tinnitus, likely labyrinthitis - resolving -Patient with sudden onset of vertigo (room spinning) and continuous non- pulsatile tinnitus -Neuro exam reassuring, blood work unremarkable. Utox negative. U/A positive however no symptoms. -CTA head: possible arteriovenous malformation. MRA negative CTA findings are likely incidental and not related. -s/p LR 1000 * Continue Zyrtec, Flonase, ofloxacin drops. * Meclizine PRN for dizziness, Zofran PRN for nausea. * PT/OT for dizziness/gait issue if BPPV in origin. * Consider ENT evaluation outpatient Anxiety/PTSD: * Continue home buspirone 10 mg PO and prazosin 1 mg PO. Asymptomatic Bacteriuria -Patient not having any dysuria or abdominal pain. -Urinalysis: Trace ketones, negative blood, negative nitrates, 1+ leukocyte esterase, 4+ urine bacteria -Urine culture positive for 2 staph organisms Diet: Regular Dvt Prophylaxis: If prolonged stay can add on, try for ambulation for time being with assist of PT Code: Full PT/OT: Consulted Dispo: Med/surg (2) Anxiety: (3) Post traumatic stress disorder: (4) Iron deficiency anemia: (5) Left-sided tinnitus: Admission and Anticipated Discharge Date Admission Date: February 06, 2024 Subjective No overnight events. Patient's dizziness has improved significantly. Left ear ringing is currently absent. She is able to sit up in bed swiftly without swaying or falling over. Pain control: Patient not currently in pain. Bowel/bladder concerns: Patient is able to urinate without concern. Their last BM was prior to admission,does not want miralax. Nutritional Status: Has been able to eat and drink without concern. Mobility: Now able to ambulate without assistance or issue to restroom. -PT Review of Systems Review of Systems: As per HPI. Physical Exam Physical Exam: Constitutional: Well-appearing, no acute distress HEENT: NCAT, no conjunctival injection, no scleral icterus CV: Normal rate and rhythm, no murmur appreciated, extremities well-perfused, no LE edema Resp: CTABL, no wheezes/rales/rhonchi appreciated,no increased work of breathing GI: soft, nondistended, nontender, BS normoactive MSK: no gross deformities appreciated Skin: warm, dry, no rash appreciated Neuro: alert, oriented, no focal neurologic deficits appreciated. Results & Data Results & Data Vital Signs (Past 12 Hours) Vital Signs Temp Pulse Resp BP Pulse Ox O2 Del Method 02/08/24 19:36 36.7 C 60 16 103/69 100 Room Air
--- NOTE | 2024-02-09 09:58 | Discharge Summary ---
Date of Service February 09, 2024 Admission HPI Per Admitting Provider Sandy is a 23 year old female with past history of iron deficiency anemia following with hematology on iron infusions, anxiety, PTSD coming to the ER for dizziness x1 day. Patient states that the day prior she was eating breakfast around 10AM when all of a sudden she felt dizzy like the room was spinning as well as ringing in the left ear and a little bit of hearing reduction. The ringing in the ear is continuous and not pulsatile in nature. She did not have any discharge out of her ears or ear pain. The dizziness is worse with standing but is present when she is laying down or anytime with motion. This became e specially debilitating to her throughout the day and she came to the ER for evaluation. She denies any fevers, chills, congestion, URI symptoms, dysuria, urinary frequency, diarrhea. In the ER patient received 1L NSS, zofran, benadryl, meclizine. Blood work unremarkable, U/A with 4+ Bacteria, WBC, LE. CTA of head revealed asymmetric prominent veins associated with R middle cerebral artery trifurcation - arteriovenous malformation with nidus in the R temporal lobe can't be excluded, recommended MRA brain. MRA and MRI brain normal/unremarkable. Admission Exam Per Admitting Provider Constitutional: WD/WN, vitals as above Patient lying in bed not wanting to roll over due to profound dizziness experienced with motion. Eyes: PERRL, conjunctivae normal, anicteric sclerae no nystagmus or saccades. ENMT: L tympanic membrane mildly dull however still with cone of light, slight irritation at the canal with what looks like a scab and possibly some erythema. Respiratory: normal respiratory effort, lungs clear to auscultation Cardiovascular: RRR, no murmur, no edema Gastrointestinal (Abdomen): normal bowel sounds, soft, nontender, no he patosplenomegaly Musculoskeletal: no cyanosis or clubbing, extremities motor strength 5/5 Neurologic: patellar DTR's 2+ bilat, sensation intact CN's II-XI intact bilaterally Psychiatric: A+Ox3, euthymic affect Principal Diagnosis Labarynthitis Discharge Exam Constitutional: Well-appearing, no acute distress HEENT: NCAT, no conjunctival injection, no scleral icterus CV: Normal rate and rhythm, no murmur appreciated, extremities well-perfused, no LE edema Resp: CTABL, no wheezes/rales/rhonchi appreciated,no increased work of breathing GI: soft, nondistended, nontender, BS normoactive MSK: no gross deformities appreciated Skin: warm, dry, no rash appreciated Neuro: alert, oriented, no focal neurologic deficits appreciated. Discharge Data Allergies Allergy/AdvReac Type Severity Reaction Status Date / Time No Known Allergies Allergy Verified 12/14/23 19:35 Consultations 02/06/24 06:18 ED Decision to Admit Stat Ordered Studies 02/06/24 01:34 CT head/brain wo con Stat 02/06/24 04:36 CT angio head w con Stat CT angio neck with con Stat 02/06/24 06:17 MR angio head wo con Stat MR brain wo/w con Stat Hospital Course (1) Dizziness: (2) Anxiety: (3) Post traumatic stress disorder: (4) Iron deficiency anemia: (5) Left-sided tinnitus: (6) Acute labyrinthitis: Chip Delgado is a 23 year old female with PMH of gastritis, constipation, and anxiety/PTSD who presented for profound dizziness and tinnitus and was admitted for management of likely labyrinthitis. Vertigo with unilateral tinnitus, likely labyrinthitis - resolving -Patient with sudden onset of vertigo (room spinning) and continuous non- pulsatile tinnitus -Neuro exam reassuring, blood work unremarkable. Utox negative. U/A positive however no symptoms. -CTA head: possible arteriovenous malformation. MRA negative CTA findings are likely incidental and not related. -s/p LR 1000 * Continue Zyrtec, Flonase, ofloxacin drops. * Meclizine PRN for dizziness, Zofran PRN for nausea. * PT/OT for dizziness/gait issue if BPPV in origin. * Consider ENT evaluation outpatient Anxiety/PTSD: * Continue home buspirone 10 mg PO and prazosin 1 mg PO. Asymptomatic Bacteriuria -Patient not having any dysuria or abdominal pain. -Urinalysis: Trace ketones, negative blood, negative nitrates, 1+ leukocyte esterase, 4+ urine bacteria -Urine culture positive for 2 staph organisms Diet: Regular Dvt Prophylaxis: If prolonged stay can add on, try for ambulation for time being with assist of PT Code: Full PT/OT: Consulted Dispo: Med/surg Total Time Total Time Spent Total Time Spent (In Minutes): <30 Discharge Plan Discharge Items Patient Disposition: Home - Self-Care Reason For Visit: DIZZINESS Discharge Diagnosis: Labyrinthitis You were admitted to the hospital for [_]. You were treated with [_]. Activity: Per Instructions section Non-emergency contact: Primary Care Provider Call non-emergency contact if: you have any medication questions and your symptoms worsen Follow-up/Referrals: [facility] [Primary Care Provider] - Anupama Thakkar DO [Resident] - Diet: Regular Addtl Attending Provider Instructions: Dizziness and Ear Ringing (Labyrinthitis) You were seen in the hospital for concerns of dizziness, left-sided tinnitus (ear ringing), and ataxia (difficulty walking). Your blood work, imaging, and physical exam were reassuring. At this time, we think that your symptoms were caused by labyrinthitis, which is the inflammation of a part of the inner ear called the labyrinth. While you were here, we treated you with meclizine for dizziness, Zofran for nausea, Zyrtec and Flonase as anti-inflammatory/anti-allergen treatment, and ofloxacin drops for ear discomfort. On Wednesday (02/08), you were starting to feel better; you were able to sit up and walk to the bathroom without issue. As we discussed, it is likely that you will have some residual symptoms of dizziness and tinnitus for several more weeks. * We recommend continuing over the counter Zyrtec and Flonase upon discharge * You can continue your other home medications upon discharge. * Please follow up with your PCP. Shadowing: We would definitely love to have you come shadow us as a premedical student. Given that we have medical students, residents, and the rest of our team, it becomes a really good way to get a "preview" of life and medicine, and certainly helps "pad your resume" applying to medical school. Once you are feeling better, email myself and the credentialing office and let them know that I would welcome you to come shadow our team. After that they will walk you through the steps you need to be credentialed as a premedical student shadowing (HIPPA training, etc.) and typically about a month later you are good to go. [email or web address] Pending Studies at Discharge: No Stand-Alone Forms: [facility], Work/School Release, Smoking Cessation Medications and DC Order Prescriptions: New meclizine 25 mg Tablet 25 mg PO Q6H PRN (Reason: dizziness) 30 Days Qty: 30 0RF fluticasone propionate 50 mcg/actuation [place],Suspension 2 spray NA BID 14 Days Qty: 16 0RF Continued buspirone 10 mg tablet 10 mg PO DAILY propranolol 10 mg tablet 10 mg PO DAILY PRN (Reason: Anxiety) pantoprazole 40 mg tablet,delayed release (DR/EC) 40 mg PO DAILY PRN (Reason: gastric distress) prazosin 1 mg capsule 1 mg PO HS Discharge Orders: Discharge Order (Routine); Ordered 02/09/24 Ordered By: Anupama Thakkar Admission Data Admit Date/Time: 02/06/24 11:36 Attending Provider: Reza Gibbs Admit Provider: Rogelio Mcghee Primary Care Provider: [facility] Other Providers: Dusty Brewer Other Interventions: Discharge Summary Assessment (RN) Last Done: 02/09/24 13:11 DC Date/Time DO NOT enter until pt leaves facility: 02/09/24 02:00 Supervising Physician Co-Signing Physician Notes I personally examined the patient and verified all vega points of history and exam, discussed case, and agree with decision making with Dr Thakkar and Lidya Frederick MS4 feeling much better. Only mildly dizzy with transitions now. Feels safe/stable for home. Reexplained working diagnoses (viral labyrinthitis accoun ting for vertigo, OM PE/serous effusions behind TMs from same viral upper respiratory illness accounting for muffled hearing and tinnitus)he expressed understanding. Outlined anticipated normal course to resolution (as long as she is showing progress, hopefully only a few more days, but certainly with as severe as it was it could take a monthcontinue to follow for complete resolution and reeval/workup further if she does not get back to 100% normal by a months from now). Vertigowhile she has the triad for Mn[place]'s of vertigo, hearing loss, and tinnitusI suspect the hearing loss and tinnitus are more from serous otitis/OM PE, and the dizziness with its rapid onset seems to fit much more with a labyrinthitis. Given her ear findings, likely postviral. Reassurance, supportive care, time. Close outpatient follow-up after dc. Obviously ENT follow-up if the tinnitus and hearing loss/vertigo persist, but if this behaves as labyrinthitis, I suspect the dizziness will improve over the coming days, given its severity it may last for a few weeks in total (informed patient of this), and I suspect that the hearing loss and tinnitus would get better in a pattern consistent with eustachian tube dysfunction/OME. Her pattern of improvement from yesterday to today fortunately fits with our working diagnoses. Stable for home, outpatient follow-up. Discussions as above Otherwise as above
--- NOTE | 2024-02-09 13:15 | Billing Data ---
Date of Service February 09, 2024 Coding Level of Care Code 39520 IN/OBS DISCH 30 MIN/LESS
== END 2024-02-09 02:00 | disposition home or self-care (01) ==
LOC: SUATTDRO → ED 23:30 → INTOOBSV 02-06 11:36 → 3E 02-06 11:36 → SUATTDRO 02-06 11:36 → 3E 02-06 13:13